=== PATIENT | female | born 1965 | race Asian ===

== ENCOUNTER 2017-03-09 11:00 | Emergency (ER) | payer BC ==
[2017-03-09 11:10] VITALS: BP 143/83
[2017-03-09] MEDS ORDERED: DEXAMETHASONE 10 MG/ML VIAL PO STA (12:32)
--- NOTE | 2017-03-09 12:34 | ED Physician Documentation ---
PD HPI HEENT - Stated complaint Stated Complaint: FEVER,DIFF SWALLOWING - Chief complaint Chief Complaint: Heent - History obtained from History obtained from: Patient - History of Present Illness Timing - onset: Yesterday Timing - duration: Days (2) Timing - details: Gradual onset, Still present Location: Throat Improves: Medication Worsens: Swalllowing Associated symptoms: Congestion, Unable to swallow, Swollen nodes, Headache Similar symptoms before: Has not had sx before Recently seen: Not recently seen - Additional information Additional information: 51-year-old female has developed a sore throat and difficulty swallowing with fever. She works at [employer] and got sick while she was at work. She does not know of anybody else at work that is sick currently. Review of Systems Constitutional: reports: Fever, Chills, Myalgias, Fatigue Eyes: denies: Decreased vision Ears: reports: Ear pain (left) Nose: reports: Rhinorrhea / runny nose, Congestion Throat: reports: Sore throat Cardiac: denies: Chest pain / pressure, Palpitations Respiratory: denies: Dyspnea, Cough GI: denies: Nausea, Vomiting PD PAST MEDICAL HISTORY - Past Medical History Cardiovascular: Hypertension, High cholesterol Respiratory: Asthma Endocrine/Autoimmune: None GI: None : None Psych: None Musculoskeletal: Osteoarthritis Derm: Eczema - Past Surgical History Past Surgical History: Yes - Present Medications Home Medications: Ambulatory Orders Medication Instructions Recorded Confirmed Benzonatate [Tessalon Perle] 100 mg PO TID PRN #30 capsule 04/16/14 03/09/17 Doxycycline Hyclate [Vibramycin] 100 mg PO BID #19 capsule 04/16/14 03/09/17 predniSONE [Deltasone] 40 mg PO DAILY 5 Days tablet 04/16/14 03/09/17 Azithromycin [Zithromax] 250 mg PO DAILY #6 tablet 03/09/17 - Allergies Allergies/Adverse Reactions: Allergies Allergy/AdvReac Type Severity Reaction Status Date / Time kiwi Allergy Intermediate Rash Verified 09/12/12 12:44 latex Allergy Intermediate Rash Verified 09/12/12 12:43 - Social History Does the pt smoke?: No Smoking Status: Never smoker Does the pt drink ETOH?: Yes Does the pt have substance abuse?: No - POLST Patient has POLST: No PD ED PE NORMAL - Vitals Vital signs reviewed: Yes (febrile and hypertensive ) - General General: No acute distress, Well developed/nourished - HEENT HEENT: Atraumatic, PERRL, EOMI, Other (The left TM is mildly inflamed the right is clear. The pharynx is with 3+ exudative tonsils with crypts. ) - Neck Neck: Supple, no meningeal sign, No bony TTP - Cardiac Cardiac: RRR, No murmur - Respiratory Respiratory: No respiratory distress, Other (dimninished breath sounds. ) - Abdomen Abdomen: Soft, Non tender - Back Back: No CVA TTP, No spinal TTP - Derm Derm: Normal color, Warm and dry, No rash - Extremities Extremities: No deformity, No edema - Neuro Neuro: No motor deficit, No sensory deficit Eye Opening: Spontaneous Motor: Obeys Commands Verbal: Oriented GCS Score: 15 - Psych Psych: Normal mood, Normal affect Results - Vitals Vitals: Vital Signs - 24 hr 03/09/17 11:06 Temperature 38.3 C H Heart Rate 88 Respiratory 20 Rate Blood Pressure 143/83 H O2 Saturation 98 Oxygen O2 Source Room air - Labs Labs: Laboratory Tests 03/09/17 11:25 Group A Strep Rapid Negative PD MEDICAL DECISION MAKING - ED course Complexity details: reviewed results, re-evaluated patient, considered differential, d/w patient, d/w family ED course: 51-year-old female with acute tonsillopharyngitis and otitis is given dexamethasone here in the emergency department and we will place her on some azithromycin. Departure - Departure Disposition: 01 Home, Self Care Clinical Impression: Tonsillopharyngitis Otitis media Qualifiers: Otitis media type: suppurative Chronicity: acute Laterality: right Recurrence: not specified as recurrent Spontaneous tympanic membrane rupture: without spontaneous rupture Qualified Code(s): H66.001 - Acute suppurative otitis media without spontaneous rupture of ear drum, right ear Condition: Stable Instructions: ED Otitis Media Acute Adult, ED Tonsillitis Follow-Up: Jazz Richards DO [Primary Care Provider] - Prescriptions: Azithromycin [Zithromax] 250 mg PO DAILY #6 tablet Forms: Activity restrictions Discharge Date/Time: 03/09/17 13:00
== END 2017-03-09 13:00 | disposition home or self-care (01) ==
LOC: ED 11:00
DX: H66.001 Acute suppurative otitis media without spontaneous rupture of ear drum, right ear (principal); J03.90 Acute tonsillitis, unspecified; I10 Essential (primary) hypertension; E78.00 Pure hypercholesterolemia, unspecified
CPT/HCPCS: 87070; 87430; 99283

== ENCOUNTER 2017-04-12 08:00 | Outpatient (CLI) | payer BC ==
[2017-04-12 13:16] LABS: ALBUMIN 4.4 g/dL (3.2-5.5); ALBUMIN/GLOBULIN RATIO 1.3 (1.0-2.2); ALKALINE PHOSPHATASE 64 IU/L (42-121); ALT ALANINE AMINOTRANSFERASE 25 IU/L (10-60); AST ASPARTATE AMINOTRANSFERASE 28 IU/L (10-42); BASOPHILS # (AUTO) 0.1 10^3/uL (0.0-0.1); BASOPHILS % (AUTO) 1.7 %; BILIRUBIN,TOTAL 0.8 mg/dL (0.2-1.0); BUN - BLOOD UREA NITROGEN 16 mg/dL (6-20); CALCIUM 9.3 mg/dL (8.5-10.3); CARBON DIOXIDE - CO2 24 mmol/L (21-32); CHLORIDE 105 mmol/L (101-111); CHOL/HDL RATIO 3.2 (<4.4); CHOLESTEROL 219 mg/dL; CREATININE 0.7 mg/dL (0.4-1.0); EOSINOPHILS # (AUTO) 0.3 10^3/uL (0.0-0.7); EOSINOPHILS % (AUTO) 4.6 %; GFR - MDRD 88 (>89); GLUCOSE 105 mg/dL (70-100); HDL CHOLESTEROL 69 mg/dL; HGB - HEMOGLOBIN 13.6 g/dL (12.0-16.0); LDL CHOLESTEROL,CALCULATED 130 mg/dL; LDL/HDL RATIO 1.9 (<4.4); LYMPHOCYTES % (AUTO) 48.5 %; MEAN CORPUSCULAR HEMOGLOBIN 29.9 pg (27.0-31.0); MEAN CORPUSCULAR HGB CONC 34.1 g/dL (32.0-36.0); MEAN CORPUSCULAR VOLUME 87.5 fL (81.0-99.0); MEAN PLATELET VOLUME 8.6 fL (7.9-10.8); MONOCYTES # (AUTO) 0.6 10^3/uL (0.0-1.0); MONOCYTES % (AUTO) 9.5 %; NEUTROPHILS # (AUTO) 2.2 10^3/uL (1.5-6.6); NEUTROPHILS % (AUTO) 35.7 %; PLT - PLATELET COUNT 289 10^3/uL (130-450); RED BLOOD COUNT 4.55 10^6/uL (4.20-5.40); RED CELL DISTRIBUTION WIDTH 13.5 % (12.0-15.0); SODIUM 138 mmol/L (135-145); TOTAL PROTEIN 7.7 g/dL (6.7-8.2); VLDL CHOLESTEROL 20 mg/dL; WHITE BLOOD COUNT 6.2 x10^3/uL (4.8-10.8)
== END 2017-04-12 08:01 | disposition home or self-care (01) ==
LOC: LAB.WCP 08:00
PROVIDERS: ATTEND Family Medicine
DX: Z00.00 Encounter for general adult medical examination without abnormal findings (principal)
CPT/HCPCS: 36415; 80053; 80061; 83721; 84443; 85025

== ENCOUNTER 2017-06-21 08:49 | Outpatient (CLI) | payer BC ==
--- NOTE | 2017-06-22 11:20 | Mammography Report ---
DIGITAL SCREENING MAMMOGRAM: 06/21/2017 CLINICAL INDICATION: A 51-year-old with history of benign right breast biopsy for screening. COMPARISON: 10/2015, 04/2014, 07/2012, 05/2011, 04/2010, 04/2009. TECHNIQUE: Routine CC and MLO projections were obtained of the breasts. FINDINGS: The breasts again demonstrate scattered fibroglandular densities bilaterally. Postoperative changes in the right inferior breast are stable. A few punctate, typically benign calcifications are present. No suspicious masses, clustered microcalcifications, or regions of architectural distortion are identified. IMPRESSION: BENIGN FINDINGS. RECOMMENDATION: Routine annual screening unless otherwise clinically indicated. BIRADS CATEGORY 2 - BENIGN FINDINGS. STANDARD QUALIFYING STATEMENTS: 1. This examination was reviewed with the aid of Computer-Aided Detection (CAD). 2. A negative or benign imaging report should not delay biopsy if clinically suspicious findings are present. Consider surgical consultation if warranted. More than 5% of cancers are not identified by imaging. 3. Dense breasts may obscure an underlying neoplasm. TD: 06/22/2017 11:19
== END 2017-06-21 08:50 | disposition home or self-care (01) ==
LOC: DI 08:49
PROVIDERS: ATTEND Family Medicine
DX: Z12.31 Encounter for screening mammogram for malignant neoplasm of breast (principal)
CPT/HCPCS: 77067

== ENCOUNTER 2017-06-28 06:37 | Day surgery (SDC) | payer BC ==
[2017-06-28] MEDS ORDERED: LACTATED RINGERS 1,000 ML IV ONE (08:52)
[2017-06-28] MEDS ORDERED: fentaNYL 250 MCG/5 ML VIAL IVP ONE (09:37)
[2017-06-28] MEDS ORDERED: MIDAZOLAM 2 MG/2 ML VIAL IVP ONE (09:37)
[2017-06-28 10:36] VITALS: BP 109/51
== END 2017-06-28 06:38 | disposition home or self-care (01) ==
LOC: SDS 06:37
PROVIDERS: ATTEND Surgery
PROC: 0DJD8ZZ Inspection of Lower Intestinal Tract, Via Natural or Artificial Opening Endoscopic (ICD-10-PCS; principal; 2017-06-28 08:30)
DX: Z12.11 Encounter for screening for malignant neoplasm of colon (principal); K64.8 Other hemorrhoids; J45.909 Unspecified asthma, uncomplicated
CPT/HCPCS: 45378; J3010; J7120

== ENCOUNTER 2017-11-18 08:00 | Outpatient (CLI) | payer BC ==
[2017-11-18 12:55] LABS: CALCIUM 9.6 mg/dL (8.5-10.3); CREATININE 0.5 mg/dL (0.4-1.0)
[2017-11-18 13:04] LABS: HB2 TOTAL 14.8 g/dL; HEMOGLOBIN A1C 0.62 g/dL
== END 2017-11-18 08:01 | disposition home or self-care (01) ==
LOC: LAB.WCP 08:00
PROVIDERS: ATTEND Family Medicine
DX: R73.01 Impaired fasting glucose (principal)
CPT/HCPCS: 36415; 80048; 83036

== ENCOUNTER 2018-05-02 13:50 | Outpatient (CLI) | payer BC ==
[2018-05-02 19:36] LABS: BASOPHILS # (AUTO) 0.1 10^3/uL (0.0-0.1); BASOPHILS % (AUTO) 0.7 %; EOSINOPHILS # (AUTO) 0.3 10^3/uL (0.0-0.7); HGB - HEMOGLOBIN 14.5 g/dL (12.0-16.0); LYMPHOCYTES # (AUTO) 3.6 10^3/uL (1.5-3.5); LYMPHOCYTES % (AUTO) 44.8 %; MEAN CORPUSCULAR HEMOGLOBIN 29.6 pg (27.0-31.0); MEAN CORPUSCULAR HGB CONC 32.8 g/dL (32.0-36.0); MEAN CORPUSCULAR VOLUME 90.3 fL (81.0-99.0); MEAN PLATELET VOLUME 8.6 fL (7.9-10.8); MONOCYTES # (AUTO) 0.7 10^3/uL (0.0-1.0); MONOCYTES % (AUTO) 8.3 %; NEUTROPHILS # (AUTO) 3.4 10^3/uL (1.5-6.6); NEUTROPHILS % (AUTO) 42.2 %; PLT - PLATELET COUNT 331 10^3/uL (130-450); RED BLOOD COUNT 4.91 10^6/uL (4.20-5.40); RED CELL DISTRIBUTION WIDTH 13.1 % (12.0-15.0)
[2018-05-02 20:00] LABS: THYROID STIMULATING HORMONE 1.3 uIU/mL (0.34-5.60)
[2018-05-02 20:03] LABS: FREE T4 (FREE THYROXINE) 0.82 ng/dL (0.58-1.64)
[2018-05-02 20:09] LABS: ALBUMIN 4.8 g/dL (3.2-5.5); ALBUMIN/GLOBULIN RATIO 1.2 (1.0-2.2); ALKALINE PHOSPHATASE 71 IU/L (42-121); ALT ALANINE AMINOTRANSFERASE 34 IU/L (10-60); AST ASPARTATE AMINOTRANSFERASE 30 IU/L (10-42); BILIRUBIN,TOTAL 0.7 mg/dL (0.2-1.0); BUN - BLOOD UREA NITROGEN 15 mg/dL (6-20); CALCIUM 10.4 mg/dL (8.5-10.3); CARBON DIOXIDE - CO2 26 mmol/L (21-32); CHLORIDE 104 mmol/L (101-111); CHOL/HDL RATIO 3.7 (<4.4); CHOLESTEROL 267 mg/dL; CREATININE 0.5 mg/dL (0.4-1.0); GFR - MDRD 130 (>89); GLUCOSE 87 mg/dL (70-100); HDL CHOLESTEROL 73 mg/dL; LDL CHOLESTEROL,CALCULATED 159 mg/dL; LDL/HDL RATIO 2.2 (<4.4); SODIUM 139 mmol/L (135-145); TOTAL PROTEIN 8.7 g/dL (6.7-8.2); VLDL CHOLESTEROL 35 mg/dL
[2018-05-02 20:54] LABS: HB2 TOTAL 15.9 g/dL; HEMOGLOBIN A1C 0.67 g/dL
== END 2018-05-02 13:51 | disposition home or self-care (01) ==
LOC: LAB.WCP 13:50
PROVIDERS: ATTEND Family Medicine
DX: Z00.00 Encounter for general adult medical examination without abnormal findings (principal); K80.20 Calculus of gallbladder without cholecystitis without obstruction
CPT/HCPCS: 36415; 80053; 80061; 83036; 83721; 84439; 84443; 84481; 85025

== ENCOUNTER 2018-08-04 20:24 | Emergency (ER) | payer BC ==
[2018-08-04 21:08] LABS: BASOPHILS # (AUTO) 0.1 10^3/uL (0.0-0.1); BASOPHILS % (AUTO) 0.9 %; EOSINOPHILS # (AUTO) 0.7 10^3/uL (0.0-0.7); EOSINOPHILS % (AUTO) 7.6 %; HGB - HEMOGLOBIN 13.4 g/dL (12.0-16.0); LYMPHOCYTES # (AUTO) 3.8 10^3/uL (1.5-3.5); LYMPHOCYTES % (AUTO) 41.8 %; MEAN CORPUSCULAR HEMOGLOBIN 29.5 pg (27.0-31.0); MEAN CORPUSCULAR HGB CONC 33.4 g/dL (32.0-36.0); MEAN CORPUSCULAR VOLUME 88.4 fL (81.0-99.0); MEAN PLATELET VOLUME 7.8 fL (7.9-10.8); MONOCYTES % (AUTO) 10.6 %; NEUTROPHILS # (AUTO) 3.6 10^3/uL (1.5-6.6); NEUTROPHILS % (AUTO) 39.1 %; PLT - PLATELET COUNT 302 10^3/uL (130-450); RED BLOOD COUNT 4.53 10^6/uL (4.20-5.40); WHITE BLOOD COUNT 9.2 x10^3/uL (4.8-10.8)
[2018-08-04 21:22] LABS: ALBUMIN 4.2 g/dL (3.2-5.5); ALBUMIN/GLOBULIN RATIO 1.2 (1.0-2.2); BILIRUBIN,TOTAL 0.6 mg/dL (0.2-1.0); CALCIUM 9.9 mg/dL (8.5-10.3); CREATININE 0.7 mg/dL (0.4-1.0); TOTAL PROTEIN 7.8 g/dL (6.7-8.2)
--- NOTE | 2018-08-04 21:38 | XRAY Report ---
Reason: chest pain Procedure Date: 08/04/2018 Accession Number: [id number] / [id number] Procedure: XR - Chest 1 View X-Ray CPT Code: 74363 FULL RESULT: EXAM: CHEST RADIOGRAPHY EXAM DATE: 08/04/2018 09:21 PM. CLINICAL HISTORY: Chest pain. COMPARISON: CHEST 2 VIEW PA/LAT 11/14/2015 8:51 AM. TECHNIQUE: 1 view. FINDINGS: Lungs/Pleura: No dense consolidation. No large effusion or pneumothorax. No pulmonary edema. Mediastinum: Heart and mediastinal contours are unremarkable. Other: None. IMPRESSION: No acute radiographic pulmonary abnormalities. RADIA
--- NOTE | 2018-08-04 21:46 | ED Physician Documentation ---
History of Present Illness - Stated complaint Stated Complaint: CHEST PX - Chief complaint Chief Complaint: Cardiac - History obtained from History obtained from: Patient - Additonal information Additional information: Patient is a 53-year-old female presenting with intermittent lower chest/upper abdominal discomfort over the past several months. Patient denies any particular inciting incident, trauma, or food such as only happening after eating. Patient reports though that she usually drinks milk and this resolves the issue. he did timing patient denies known diagnosis of GERD. Patient also denies nausea, vomiting, other chest pain, lightheadedness, syncope, productive cough, other abdominal pain, leg swelling or pain, urinary or stool changes. Patient does report that when she is experiencing this discomfort she feels short of breath, but not pleuritic or with cough. Patient has not yet seen her primary care physician for this issue. No other improving or worsening factors noted. 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 - Allergies Allergies/Adverse Reactions: Allergies Allergy/AdvReac Type Severity Reaction Status Date / Time kiwi Allergy Intermediate Rash Verified 08/04/18 20:39 latex Allergy Intermediate Rash Verified 08/04/18 20:39 - Social History Does the pt smoke?: No Smoking Status: Never smoker Does the pt drink ETOH?: Yes Does the pt have substance abuse?: No - POLST Patient has POLST: No PD ED PE NORMAL - Vitals Vital signs reviewed: Yes - General General: Alert and oriented X 3, No acute distress, Well developed/nourished - HEENT HEENT: Atraumatic, Moist mucous membranes - Cardiac Cardiac: RRR, No murmur - Respiratory Respiratory: No respiratory distress, Clear bilaterally - Abdomen Abdomen: Soft, Non tender, Non distended - Derm Derm: Normal color, Warm and dry, No rash - Extremities Extremities: No deformity, No tenderness to palpate, No edema, No calf tenderness / cord - Neuro Neuro: No motor deficit, No sensory deficit - Psych Psych: Normal mood, Normal affect Results - Vitals Vitals: Vital Signs - 24 hr 08/04/18 08/04/18 08/04/18 20:34 21:00 22:04 Temperature 36.3 C L 36.5 C 36.3 C L Heart Rate 65 76 69 Respiratory 74 H 18 12 Rate Blood Pressure 150/91 H 183/103 H 150/98 H O2 Saturation 97 97 96 Oxygen O2 Source Room air - EKG (time done) 2032 Rate: Rate (enter#) (65) Rhythm: NSR Ischemia: ST elevation c/w repol - Labs Labs: Laboratory Tests 08/04/18 08/04/18 08/04/18 21:00 21:00 21:00 WBC 9.2 RBC 4.53 Hgb 13.4 Hct 40.1 MCV 88.4 MCH 29.5 MCHC 33.4 RDW 13.0 Plt Count 302 MPV 7.8 L Neut # (Auto) 3.6 Lymph # (Auto) 3.8 H [place] # (Auto) 1.0 Eos # (Auto) 0.7 Baso # (Auto) 0.1 Absolute Nucleated RBC 0.01 Nucleated RBC % 0.1 Sodium 140 Potassium 3.5 Chloride 104 Carbon Dioxide 24 Anion Gap 12.0 BUN 24 H Creatinine 0.7 Estimated GFR (MDRD) 88 L Glucose 133 H Calcium 9.9 Total Bilirubin 0.6 AST 29 ALT 33 Alkaline Phosphatase 68 Troponin I < 0.04 Total Protein 7.8 Albumin 4.2 Globulin 3.6 Albumin/Globulin Ratio 1.2 Lipase 42 PD MEDICAL DECISION MAKING - ED course Complexity details: reviewed results, considered differential, d/w patient, d/w family ED course: Given patient's complaints and presentation, feel most likely that she is experiencing GERD and discussed this etiology with her at length. Also obtained further work-up including chest x-ray, EKG, and screening lab work including troponin which returned relatively unremarkable. Do not have high suspicion for ACS, myocardial infarction, unstable angina, PE, or pneumonia, but considered. Patient does not require repeat troponin given duration of symptoms. Also do not feel she requires emergent cardiac work-up at this time, as again feel this is likely related to underlying acid reflux. Feel the patient is safe to discharge home and discussed diet changes, use of antacids, return precautions, and appropriate follow-up. Patient declined any medication such as GI cocktail in the ED and is otherwise comfortable with discharge plan. Departure - Departure Disposition: Home, Self Care Clinical Impression: Gastroesophageal reflux disease Condition: Good Instructions: ED GERD Follow-Up: Jazz Richards DO [Primary Care Provider] - Within 3 Days Comments: Please continue any home medications as previously instructed. Recommend avoidance of foods that could cause your acid pain to worsen such as fried foods, fatty foods, greasy foods. May try [id number] medications such as Nexium, Prilosec, or Tums. Please follow-up with primary care physician in next 2 to 3 days and return to ED sooner if you experience worsening symptoms or have other concerns. Discharge Date/Time: 08/04/18 22:05
[2018-08-04 22:05] VITALS: BP 150/98
== END 2018-08-04 22:05 | disposition home or self-care (01) ==
LOC: ED 20:24
DX: K21.9 Gastro-esophageal reflux disease without esophagitis (principal); J45.909 Unspecified asthma, uncomplicated
CPT/HCPCS: 36415; 71045; 80053; 83690; 84484; 85025; 93005; 99283

== ENCOUNTER 2018-09-07 08:00 | Outpatient (CLI) | payer BC ==
[2018-09-07 19:36] LABS: HB2 TOTAL 14.8 g/dL; HEMOGLOBIN A1C 0.67 g/dL; HEMOGLOBIN A1C % 6.3 % (4.6-6.2)
== END 2018-09-07 08:01 | disposition home or self-care (01) ==
LOC: LAB.WCP 08:00
PROVIDERS: ATTEND Family Medicine
DX: E83.52 Hypercalcemia (principal); R73.01 Impaired fasting glucose
CPT/HCPCS: 36415; 81599; 82306; 82330; 83036; 83970

== ENCOUNTER 2018-09-25 12:13 | Emergency (ER) | payer BC ==
[2018-09-25 12:21] VITALS: BP 167/96
--- NOTE | 2018-09-25 12:46 | ED Physician Documentation ---
History of Present Illness - Stated complaint Stated Complaint: LT RING FING LAC - Chief complaint Chief Complaint: Laceration - History obtained from History obtained from: Patient - History of Present Illness Timing: Prior to arrival - Additonal information Additional information: Patient is a 53-year-old female, right-handed, presenting with distal tip lacer ation to the left ring finger when she accidentally cut it while chopping vegetables just prior to arrival.Patient reports that she removed a chunk of skin and affected the distal tip of the nail, but denied other complications. Patient does report pain and bleeding, but denies significant change in sensation, range of motion, or strength. No other injuries. Tetanus unknown. No other improving or worsening factors. 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 - Allergies Allergies/Adverse Reactions: Allergies Allergy/AdvReac Type Severity Reaction Status Date / Time kiwi Allergy Intermediate Rash Verified 09/25/18 12:21 latex Allergy Intermediate Rash Verified 09/25/18 12:21 - Social History Does the pt smoke?: No Smoking Status: Never smoker Does the pt drink ETOH?: Yes Does the pt have substance abuse?: No - POLST Patient has POLST: No PD ED PE NORMAL - Vitals Vital signs reviewed: Yes - General General: Alert and oriented X 3, No acute distress, Well developed/nourished - HEENT HEENT: Atraumatic, Moist mucous membranes - Cardiac Cardiac: Strong equal pulses - Respiratory Respiratory: No respiratory distress - Derm Derm: Normal color, Warm and dry, No rash, Other (Small chunk of skin removed from distal tip of left ring finger involving edge of nail, but not significantly. No nailbed injury. No damage to underlying structures noted.) Results - Vitals Vitals: Vital Signs - 24 hr 09/25/18 12:17 Temperature 36.7 C Heart Rate 66 Respiratory 18 Rate Blood Pressure 167/96 H O2 Saturation 99 Oxygen O2 Source Room air PD MEDICAL DECISION MAKING - ED course Complexity details: considered differential, d/w patient ED course: Patient presenting with distal tip laceration of left ring finger that is not amenable to repair. Patient anesthetized with let and copiously irrigated and cleaned before bandaging with Surgicel, nonadherent, and gauze. Tetanus updated. Advised patient of appropriate wound care, return precautions, supportive cares, and follow-up. Patient voiced understanding and is comfortable with discharge plan. Departure - Departure Disposition: 01 Home, Self Care Clinical Impression: Laceration Condition: Good Instructions: ED Laceration All Follow-Up: Jazz Richards DO [Primary Care Provider] - Within 3 Days Comments: Please keep bandaging in place for the next 24 hours. Remove gently. May apply bacitracin or Neosporin 1-2 times daily and otherwise bandage as instructed to avoid persistent bleeding or infection. Clean hand with running water and soap only. Do not submerge. Please follow-up with primary care physician in next 2 to 3 days and return to ED sooner if experience worsening symptoms, continued bleeding, signs of infection, or have other concerns. Forms: Activity restrictions
[2018-09-25] MEDS ORDERED: LIDOCAINE-EPINEPH-TETRACAINE 3 ML SYRINGE TOP STA (12:51)
[2018-09-25] MEDS ORDERED: TETANUS/DIPHTHERIA/PERTUSSIS 0.5 ML SYRINGE IM ONE (12:55)
== END 2018-09-25 14:18 | disposition home or self-care (01) ==
LOC: ED 12:13
DX: S61.215A Laceration without foreign body of left ring finger without damage to nail, initial encounter (principal); W26.0XXA Contact with knife, initial encounter; Y93.G1 Activity, food preparation and clean up
CPT/HCPCS: 90471; 99282

== ENCOUNTER 2019-06-30 07:00 | Outpatient (CLI) | payer BC ==
[2019-06-30 13:37] LABS: CALCIUM 9.5 mg/dL (8.5-10.3); CREATININE 0.5 mg/dL (0.4-1.0)
[2019-06-30 14:08] LABS: HB2 TOTAL 14.4 g/dL; HEMOGLOBIN A1C 0.64 g/dL; HEMOGLOBIN A1C % 6.2 % (4.6-6.2)
== END 2019-06-30 23:59 | disposition home or self-care (01) ==
LOC: LAB.WCP 07:00
PROVIDERS: ATTEND Family Medicine
DX: I10 Essential (primary) hypertension (principal); R73.01 Impaired fasting glucose
CPT/HCPCS: 36415; 80048; 83036

== ENCOUNTER 2020-01-09 14:48 | Outpatient (CLI) | payer BC ==
--- NOTE | 2020-01-11 15:03 | Mammography Report ---
BILATERAL DIGITAL SCREENING MAMMOGRAM 3D/2D: 01/09/2020 CLINICAL: Routine screening. Comparison is made to exams dated: 06/21/2017 mammogram, 10/28/2015 ultrasound, 10/28/2015 mammogram, mammogram, and 07/14/2012 mammogram - [facility]. There are scattered fibro glandular elements in both breasts. No significant masses, calcifications, or other findings are seen in either breast. There has been no significant interval change. IMPRESSION: NEGATIVE There is no mammographic evidence of malignancy. A 1 year screening mammogram is recommended. This exam was interpreted at Station ID: [id number]. NOTE: For mammograms, a report in lay terms will be sent to the patient. Approximately 15% of breast malignancies will not be visualized mammographically. In the management of a palpable breast mass, a negative mammogram must not discourage biopsy of a clinically suspicious lesion. Electronically Signed By: Marcel Laws M.D. slc/penrad:01/11/2020 12:50:24 ACR BI-RADS Category 1: Negative 3341F PARENCHYMAL PATTERN: (A) - The breast(s) demonstrate(s) scattered fibroglandular densities. BI-RADS CATEGORY: (1) - 1 RECOMMENDATION: (ANNUAL) - Recommend routine annual screening mammography. [id number] 1 year screening LATERALITY: (B)
== END 2020-01-09 14:49 | disposition home or self-care (01) ==
LOC: DI.N 14:48
DX: Z12.31 Encounter for screening mammogram for malignant neoplasm of breast (principal)
CPT/HCPCS: 77063; 77067

== ENCOUNTER 2020-02-02 13:16 | Outpatient (CLI) | payer BC ==
--- NOTE | 2020-02-02 13:18 | XRAY Report ---
PROCEDURE: Foot 2 View LT INDICATIONS: LEFT FOOT PAIN AND SWELLING TECHNIQUE: 2 views of the foot were acquired. COMPARISON: None FINDINGS: Bones: No fractures or dislocations. Well-defined plantar and dorsal calcaneal enthesophytes are see n. No suspicious bony lesions. Soft tissues: No tibiotalar joint effusion. Achilles tendon appears normal. IMPRESSION: The left foot fracture or dislocation. No suspicious intraosseous lesion. Well-defined plantar and do rsal calcaneal enthesophytes. Reviewed by: Sundeep Goldberg MD on 02/02/2020 1:17 PM PST Approved by: Sundeep Goldberg MD on 02/02/2020 1:17 PM PST Station ID: [id number]
== END 2020-02-02 23:59 | disposition home or self-care (01) ==
LOC: DI.N 13:16
PROVIDERS: ATTEND Nurse Practitioner
DX: M79.672 Pain in left foot (principal)

== ENCOUNTER 2020-02-07 08:00 | Outpatient (CLI) | payer BC ==
[2020-02-07 18:45] LABS: ALBUMIN 4.5 g/dL (3.2-5.5); ALBUMIN/GLOBULIN RATIO 1.2 (1.0-2.2); ALKALINE PHOSPHATASE 65 IU/L (42-121); ALT ALANINE AMINOTRANSFERASE 26 IU/L (10-60); AST ASPARTATE AMINOTRANSFERASE 24 IU/L (10-42); BILIRUBIN,TOTAL 0.4 mg/dL (0.2-1.0); BUN - BLOOD UREA NITROGEN 21 mg/dL (6-20); CALCIUM 9.9 mg/dL (8.5-10.3); CARBON DIOXIDE - CO2 24 mmol/L (21-32); CHLORIDE 104 mmol/L (101-111); CHOL/HDL RATIO 3.9 (<4.4); CHOLESTEROL 265 mg/dL; CREATININE 0.7 mg/dL (0.4-1.0); GLUCOSE 108 mg/dL (70-100); HDL CHOLESTEROL 68 mg/dL; LDL CHOLESTEROL,CALCULATED 158 mg/dL; LDL/HDL RATIO 2.3 (<4.4); SODIUM 139 mmol/L (135-145); TOTAL PROTEIN 8.3 g/dL (6.7-8.2); URIC ACID 10.5 mg/dL (2.6-7.2); VLDL CHOLESTEROL 39 mg/dL
[2020-02-07 19:23] LABS: CRP - C-REACTIVE PROTEIN < 1.0 mg/dL (0-1.0)
[2020-02-07 20:39] LABS: HEMOGLOBIN A1c% 6.3 % (4.27-6.07)
== END 2020-02-07 08:01 | disposition home or self-care (01) ==
LOC: LAB.WCP 08:00
PROVIDERS: ATTEND Family Medicine
DX: R73.01 Impaired fasting glucose (principal); I10 Essential (primary) hypertension; M10.9 Gout, unspecified
CPT/HCPCS: 36415; 80053; 80061; 83036; 83721; 84550; 85651; 86140

== ENCOUNTER 2021-09-06 10:18 | Outpatient (CLI) | payer BC ==
[2021-09-06 19:21] LABS: BASOPHILS # (AUTO) 0.1 10^3/uL (0.0-0.1); BASOPHILS % (AUTO) 1.4 %; EOSINOPHILS # (AUTO) 0.8 10^3/uL (0.0-0.7); EOSINOPHILS % (AUTO) 12.8 %; HCT - HEMATOCRIT 42.8 % (37.0-47.0); LYMPHOCYTES # (AUTO) 2.5 10^3/uL (1.5-3.5); LYMPHOCYTES % (AUTO) 42.3 %; MEAN CORPUSCULAR HEMOGLOBIN 30.2 pg (27.0-31.0); MEAN CORPUSCULAR HGB CONC 32.7 g/dL (32.0-36.0); MEAN CORPUSCULAR VOLUME 92.4 fL (81.0-99.0); MEAN PLATELET VOLUME 10.4 fL (7.9-10.8); MONOCYTES # (AUTO) 0.5 10^3/uL (0.0-1.0); MONOCYTES % (AUTO) 9.1 %; NEUTROPHILS % (AUTO) 34.2 %; PLT - PLATELET COUNT 350 10^3/uL (130-450); RED BLOOD COUNT 4.63 10^6/uL (4.20-5.40); RED CELL DISTRIBUTION WIDTH 12.4 % (12.0-15.0); WHITE BLOOD COUNT 5.8 x10^3/uL (4.8-10.8)
[2021-09-06 19:36] LABS: ALBUMIN 4.4 g/dL (3.2-5.5); ALBUMIN/GLOBULIN RATIO 1.4 (1.0-2.2); ALKALINE PHOSPHATASE 65 IU/L (42-121); ALT ALANINE AMINOTRANSFERASE 23 IU/L (10-60); AST ASPARTATE AMINOTRANSFERASE 23 IU/L (10-42); BILIRUBIN,TOTAL 0.7 mg/dL (0.2-1.0); BUN - BLOOD UREA NITROGEN 13 mg/dL (6-20); CALCIUM 9.7 mg/dL (8.5-10.3); CARBON DIOXIDE - CO2 29 mmol/L (21-32); CHLORIDE 106 mmol/L (101-111); CHOL/HDL RATIO 3.1 (<4.4); CHOLESTEROL 238 mg/dL; CREATININE 0.7 mg/dL (0.4-1.0); GFR - MDRD 87 (>89); GLUCOSE 92 mg/dL (70-100); HDL CHOLESTEROL 78 mg/dL; LDL CHOLESTEROL,CALCULATED 141 mg/dL; LDL/HDL RATIO 1.8 (<4.4); POTASSIUM 4.1 mmol/L (3.5-5.0); SODIUM 143 mmol/L (135-145); TOTAL PROTEIN 7.6 g/dL (6.7-8.2); TRIGLYCERIDES 94 mg/dL; VLDL CHOLESTEROL 19 mg/dL
[2021-09-06 19:46] LABS: THYROID STIMULATING HORMONE 0.64 uIU/mL (0.34-5.60)
[2021-09-06 21:43] LABS: ESTIMATED AVERAGE GLUCOSE 114 mg/dL (70-100); HEMOGLOBIN A1c% 5.6 % (4.27-6.07)
== END 2021-09-06 10:19 | disposition home or self-care (01) ==
LOC: LAB.N 10:18
PROVIDERS: ATTEND Physician Assistant
DX: I10 Essential (primary) hypertension (principal); E78.5 Hyperlipidemia, unspecified; R73.01 Impaired fasting glucose
CPT/HCPCS: 36415; 80053; 80061; 83036; 83721; 84443; 85025

== ENCOUNTER 2022-09-02 13:30 | Outpatient (CLI) | payer BC ==
[2022-09-02 17:49] LABS: BASOPHILS # (AUTO) 0.1 10^3/uL (0.0-0.1); BASOPHILS % (AUTO) 1.4 %; EOSINOPHILS # (AUTO) 0.8 10^3/uL (0.0-0.7); EOSINOPHILS % (AUTO) 11.1 %; HCT - HEMATOCRIT 40.4 % (37.0-47.0); HGB - HEMOGLOBIN 13.1 g/dL (12.0-16.0); LYMPHOCYTES # (AUTO) 2.9 10^3/uL (1.5-3.5); MEAN CORPUSCULAR HEMOGLOBIN 29.7 pg (27.0-31.0); MEAN CORPUSCULAR HGB CONC 32.4 g/dL (32.0-36.0); MEAN CORPUSCULAR VOLUME 91.6 fL (81.0-99.0); MONOCYTES # (AUTO) 0.7 10^3/uL (0.0-1.0); MONOCYTES % (AUTO) 9.1 %; NEUTROPHILS # (AUTO) 2.8 10^3/uL (1.5-6.6); NEUTROPHILS % (AUTO) 38.3 %; PLT - PLATELET COUNT 327 10^3/uL (130-450); RED BLOOD COUNT 4.41 10^6/uL (4.20-5.40); RED CELL DISTRIBUTION WIDTH 12.5 % (12.0-15.0); WHITE BLOOD COUNT 7.2 x10^3/uL (4.8-10.8)
[2022-09-02 18:22] LABS: ALBUMIN 4.1 g/dL (3.2-5.5); ALBUMIN/GLOBULIN RATIO 1.3 (1.0-2.2); ALKALINE PHOSPHATASE 60 IU/L (42-121); ALT ALANINE AMINOTRANSFERASE 28 IU/L (10-60); AST ASPARTATE AMINOTRANSFERASE 26 IU/L (10-42); BILIRUBIN,TOTAL 0.6 mg/dL (0.2-1.0); BUN - BLOOD UREA NITROGEN 19 mg/dL (6-20); CALCIUM 9.5 mg/dL (8.5-10.3); CARBON DIOXIDE - CO2 26 mmol/L (21-32); CHLORIDE 107 mmol/L (101-111); CHOL/HDL RATIO 2.8 (<4.4); CHOLESTEROL 243 mg/dL; CREATININE 0.6 mg/dL (0.4-1.0); GFR - MDRD 103 (>89); GLUCOSE 140 mg/dL (70-100); HDL CHOLESTEROL 87 mg/dL; LDL CHOLESTEROL,CALCULATED 132 mg/dL; LDL/HDL RATIO 1.5 (<4.4); POTASSIUM 3.8 mmol/L (3.5-5.0); SODIUM 138 mmol/L (135-145); TOTAL PROTEIN 7.2 g/dL (6.7-8.2); TRIGLYCERIDES 122 mg/dL; VLDL CHOLESTEROL 24 mg/dL
[2022-09-02 18:31] LABS: THYROID STIMULATING HORMONE 0.93 uIU/mL (0.34-5.60)
[2022-09-02 20:25] LABS: ESTIMATED AVERAGE GLUCOSE 117 mg/dL (70-100); HEMOGLOBIN A1c% 5.7 % (4.27-6.07)
== END 2022-09-02 13:31 | disposition home or self-care (01) ==
LOC: LAB.N 13:30
PROVIDERS: ATTEND Physician Assistant
DX: I10 Essential (primary) hypertension (principal); E78.5 Hyperlipidemia, unspecified; R73.01 Impaired fasting glucose
CPT/HCPCS: 36415; 80053; 80061; 83036; 83721; 84443; 85025